=== PATIENT | female | born 1990 | race Caucasian/White ===

== ENCOUNTER 2016-12-07 16:40 | Emergency (ER) | payer SELFPAY ==
[~2016-12-07] VITALS: Ht 157.5 cm; Wt 55.0 kg
[2016-12-07 16:51] VITALS: Ht 157.5 cm; Wt 55.0 kg
== END 2016-12-07 19:56 | disposition left against medical advice (07) ==
LOC: FTE 16:40
DX: Z53.21 Procedure and treatment not carried out due to patient leaving prior to being seen by health care provider (principal)